=== PATIENT | female | born 1955 | race Asian ===

== ENCOUNTER 2020-08-31 04:16 | Day surgery (SDC) | payer OTHER ==
[2020-08-29 17:48] VITALS: BMI 23.8
[2020-08-31 06:31] VITALS: TEMP 97.8
[2020-08-31] MEDS ORDERED: TRIAMCINOLONE ACET 40MG/1ML VIAL ONE (07:09)
[2020-08-31] MEDS ORDERED: DEXAMETHASONE SOD PHOSPHATE/PF 10 MG/ML SDV ONE (07:09)
[2020-08-31] MEDS ORDERED: BUPIVACAINE HCL/PF 0.75% 10 ML VIAL ONE (07:10)
[2020-08-31] MEDS ORDERED: BUPIVACAINE HCL/PF 0.25% (2.5MG/ML) 10 ML VIAL ONE (07:10)
[2020-08-31] MEDS ORDERED: LIDOCAINE HCL/PF 1% SDV 5ML VIAL ONE (07:10)
--- NOTE | 2020-08-31 07:53 | PROC ---
Procedure Note Procedure: Pre procedure Diagnosis: Cervical Spondylosis Post Procedure Diagnosis: same Anesthesia: local Procedure Performed: Right and Left TON C3 C4 C5 medial branch block under fluorocopic guidance After the risks and benefits were explained, informed consent was obtained. The patient was then taken to the procedure room and positioned prone on the procedure table. Time out was performed. The region overlying the appropriate vertebral bodies was identified using fluoroscopy. The skin was prepped and draped in the usual sterile fashion. Using fluoroscopic guidance, 25 gauge 2.5 inch spinal needles were then introduced to the fossa at the center of the waists of the articular pillars where the BILATERAL TON C3, C4, and C5 medial branches are located. Omnipaque 180 confirmed appropriate needle placement. There was no epidural or vascular flow observed. .25 % bupivacaine was drawn into a syringe. 0.5cc of this solution was then injected at each level. The same procedure was repeated on the LEFT side at the same levels. The patient tolerated the procedure well and there were no complications. The patient was taken to the post procedure recovery area in good condition. Vital signs remained stable before, during, and after the procedure. The patient was given oral and written follow-up instructions. The patient was given a follow up appointment with me in the near future. Rigo Ramírez DO
[2020-08-31] MEDS ORDERED: BUPIVACAINE HCL/PF 0.5% (5 MG/ML) 30 ML VIAL IJ ONE (08:09)
[2020-08-31] MEDS ORDERED: IOHEXOL 180 MG/1 ML ML IJ ONE (08:09)
[2020-08-31 10:03] VITALS: BP 113/62; PULSE 68
== END 2020-08-31 10:26 | disposition home or self-care (01) ==
LOC: JASU-SURG 04:16
PROVIDERS: ATTEND Pain Medicine Pain Medicine
PROC: 3E0T33Z Introduction of Anti-inflammatory into Peripheral Nerves and Plexi, Percutaneous Approach (ICD-10-PCS; 2020-08-31)
PROC: 3E0T3BZ Introduction of Anesthetic Agent into Peripheral Nerves and Plexi, Percutaneous Approach (ICD-10-PCS; principal; 2020-08-31 08:00)
DX: M47.812 Spondylosis without myelopathy or radiculopathy, cervical region (principal)
CPT/HCPCS: 76000-TC-FY